=== PATIENT | female | born 1960 | race Caucasian/White ===

== ENCOUNTER 2023-10-16 16:28 | Emergency (ER) | payer OTHER, SELFPAY ==
[2023-10-16 16:58] VITALS: BP 101/52; PULSE 110; RESP 16; TEMP 36.6; O2SAT 98
[2023-10-16 18:55] VITALS: BP 122/40; PULSE 100; RESP 19; O2SAT 98
--- NOTE | 2023-10-16 19:34 | ED.GENADULT ---
HPI - General Adult General Chief complaint: Nausea/Vomiting/Diarrhea Stated complaint: im sure i am very dehydrated n/v/d Time Seen by Provider: 10/16/23 18:56 History of Present Illness HPI narrative: 63-year-old female presenting ED with chief complaint of nausea vomiting diarrhea. She has been having nausea for the last 2 weeks. She started developed diarrhea for 5 days ago. No fever chills chest pain difficulty breathing abdominal pain urinary symptoms. No recent antibiotics. Traveled to [facility] in August but did not develop diarrhea until 2 months after that. Related Data Allergies Allergy/AdvReac Type Severity Reaction Status Date / Time No Known Allergies Allergy Verified 10/16/23 19:34 [facility] Past Medical History Medical History Breast cancer Exam Narrative: APPEARANCE: No apparent distress. Well appearing Head: atraumatic. EYES: EOMI, NOSE: Atraumatic NECK: Trachea midline RESPIRATORY: No increased rate of breathing CARDIOVASCULAR: RRR, ABDOMINAL: Non-distended, soft nontender no guarding rebound MUSCULOSKELETAl: No obvious deformities NEURO: Alert. Moving 4/4 extremities SKIN:: Warm, dry. Normal color PSYCHIATRIC: Normal affect Course Vital Signs Vital signs: Vital Signs Temperature 98 F 10/16/23 16:58 Pulse Rate 110 H 10/16/23 16:58 Respiratory Rate 16 10/16/23 16:58 Blood Pressure 101/52 L 10/16/23 16:58 Pulse Oximetry 98 10/16/23 16:58 Oxygen Delivery Room Air 10/16/23 16:58 Temperature 98 F 10/16/23 16:58 Pulse Rate 91 10/16/23 21:34 Respiratory Rate 16 10/16/23 21:34 Blood Pressure 106/57 L 10/16/23 21:34 Pulse Oximetry 98 10/16/23 21:34 Oxygen Delivery Room Air 10/16/23 16:58 Medical Decision Making [facility] Narrative Medical decision making narrative: -Course: 6-year-old female presenting with nausea vomiting and diarrhea. Workup significant for hypokalemia and hypomagnesemia which was repleted. Patient given fluid rehydration with improvement. She is able to tolerate p.o.. Patient will be discharged with supportive care and return precautions. 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 -Interventions: 2L normal saline, Lomotil, Zofran, Forty mEq p.o. potassium, 2 g magnesium -Shared decision making / Disposition: Discharged -RX Lomotil, zofran Vital Signs Vital Signs: Vital Signs Temperature 98 F 10/16/23 16:58 Pulse Rate 110 H 10/16/23 16:58 Respiratory Rate 16 10/16/23 16:58 Blood Pressure 101/52 L 10/16/23 16:58 Pulse Oximetry 98 10/16/23 16:58 Oxygen Delivery Room Air 10/16/23 16:58 Temperature 98 F 10/16/23 16:58 Pulse Rate 91 10/16/23 21:34 Respiratory Rate 16 10/16/23 21:34 Blood Pressure 106/57 L 10/16/23 21:34 Pulse Oximetry 98 10/16/23 21:34 Oxygen Delivery Room Air 10/16/23 16:58 Lab Data 10/16/23 19:47 10/16/23 19:47 Labs: Lab Results 10/16/23 10/16/23 Range/Units 19:47 21:44 WBC 9.2 (4.5-10.0) K/mm3 RBC 4.07 L (4.2-5.4) M/mm3 Hgb 12.9 (12.0-15.0) g/dL Hct 38.2 (37.0-47.0) % MCV 93.9 (80-100) fl MCH 31.7 (26-34) pg MCHC 33.8 (32-36) g/dl RDW 13.9 (11.5-14.5) % Plt Count 372 (150-375) k/mm3 MPV 8.8 (7.4-10.4) fl Immature Gran % (Auto) Not Reportable Neut % (Auto) Not Reportable Lymph % (Auto) Not Reportable [place] % (Auto) Not Reportable Eos % (Auto) Not Reportable Baso % (Auto) Not Reportable Lymph # (Auto) Not Reportable [place] # (Auto) Not Reportable Eos # (Auto)
[2023-10-16] MEDS: SODIUM CHLORIDE 0.9% IV 2,000 ML 999 ML IV CONT (19:48)
[2023-10-16] MEDS: DIPHENOXYLATE/ATROPINE (*CRX) 2.5 MG TABLET 2 TABLET PO (19:48)
[2023-10-16] MEDS: ONDANSETRON INJ 4 MG/2 ML VIAL IV PUSH (19:48)
[2023-10-16 20:00] LABS: Hematocrit 38.2 % (37.0-47.0); Hemoglobin 12.9 g/dL (12.0-15.0); Mean Corpuscular HGB Conc 33.8 g/dl (32-36); Mean Corpuscular Hemoglobin 31.7 pg (26-34); Mean Corpuscular Volume 93.9 fl (80-100); Mean Platelet Volume 8.8 fl (7.4-10.4); Platelet Count Result 372 k/mm3 (150-375); Red Blood Count 4.07 M/mm3 (4.2-5.4); Red Cell Distribution Width 13.9 % (11.5-14.5); White Blood Count 9.2 K/mm3 (4.5-10.0)
[2023-10-16 20:13] LABS: Alanine Aminotransferase 15 U/L (6-35); Albumin Level 3.9 g/dL (3.5-5.1); Alkaline Phosphatase 97 U/L (38-126); Anion Gap 12 mmol/L (8-16); Aspartate Amino Transferase 22 U/L (14-36); Bilirubin,Total 0.6 mg/dL (0.2-1.3); Blood Urea Nitrogen 14 mg/dL (7-17); Calcium 9.3 mg/dL (8.4-10.2); Carbon Dioxide 23 mmol/L (22-30); Chloride 99 mmol/L (98-107); Estimated CRCL calculation 66 ml/min; Estimated Glomerular Filt Rate > 60; Glucose 100 mg/dL (65-110); Lipase 581 U/L (23-300); Magnesium 1.2 mg/dL (1.6-2.3); Phosphorus 3.5 mg/dL (2.5-4.5); Potassium 2.7 mmol/L (3.4-5.0); Sodium 134 mmol/L (137-145)
[2023-10-16 20:27] LABS: Band Neutrophils Percent 12 % (0-6); Lymphocytes Absolute Manual 1.28 K/mm3 (1.1-4.5); Monocytes Absolute Manual 0.92 K/mm3 (0.1-0.90); Monocytes Percent Manual 10 % (3-9); Neutrophils Absolute Manual 6.99 K/mm3 (1.7-7.2); Neutrophils Percent Manual 64 % (46-73); Total Cells Counted 100
[2023-10-16 20:28] LABS: Platelet Estimate Adequate (Adequate); Schistocytes None Seen (NORMAL)
[2023-10-16] MEDS: MAGNESIUM SULF 2 GM/WATER 50ML 2 GM/50 ML BAG IVPB (20:32)
[2023-10-16 20:35] LABS: Influenza A QL RT-PCR Negative (Negative); Influenza B QL RT-PCR Negative (Negative); RSV RNA, RT-PCR Negative (Negative); SARS-CoV-2 RNA PCR Negative (Negative)
[2023-10-16] MEDS: POTASSIUM CHLORIDE 20 MEQ ER TABLET 40 MEQ PO (21:00)
[2023-10-16 21:34] VITALS: BP 106/57; PULSE 91; RESP 16; O2SAT 98
[2023-10-16 21:46] LABS: Glucose Point of Care 90 mg/dl (65-105)
== END 2023-10-16 22:32 | disposition home or self-care (01) ==
PROVIDERS: Emergency Provider Emergency Medicine
DX: K52.9 Noninfective gastroenteritis and colitis, unspecified (principal); Z20.822 Contact with and (suspected) exposure to COVID-19; Z85.3 Personal history of malignant neoplasm of breast; Z92.21 Personal history of antineoplastic chemotherapy; Z90.13 Acquired absence of bilateral breasts and nipples
CPT/HCPCS: 36415; 80053; 82948; 83690; 83735; 84100; 85025; 87637; 96361; 96365; 96366; 96375; 99284; A9270; J2405; J3475; J7030

== ENCOUNTER 2024-03-05 09:53 | Outpatient (CLI) | payer OTHER, SELFPAY ==
--- NOTE | ~2024-03-05 | XR_ITS ---
XR shoulder LT min 2V Ordering provider: Ed Kincaid MD History: . M75.02 - Adhesive capsulitis of left shoulder . Comparison: None. FINDINGS: BONES: No acute fracture or dislocation. JOINT SPACES: The acromioclavicular joint is normal. The glenohumeral joint is normal. SOFT TISSUES: Normal. IMPRESSION: No acute osseous abnormality left shoulder. Reviewed, dictated and finalized at location A.
== END 2024-03-05 09:54 | disposition home or self-care (01) ==
PROVIDERS: Visit Provider Orthopaedic Surgery
DX: M75.02 Adhesive capsulitis of left shoulder (principal)
CPT/HCPCS: 73030

== ENCOUNTER 2025-07-24 01:52 | Day surgery (SDC) | payer OTHER, SELFPAY ==
[2025-07-03 15:30] VITALS: BMI 24.3
--- OUTSIDE RECORDS SUMMARY | 2025-07-24 01:55 | XMS_ITS ---
Author Organization [facility] Address [address] [place] [address] Care Team Providers Care Transmission Specialist Name Role Phone Jacqueline Vazquez MD Unavailable [phone] Jarred Anderson MD Unavailable [phone] Shawanda Mcpherson MD Unavailable Warner Mack MD Unavailable Rosa Cope MD Primary Care Provider [phone] Active Problems Problem Noted Date Diagnosed Date Necrosis of surgical wound 12/13/2023 Adhesive bursitis of left shoulder 12/13/2023 Breast pain, left 11/28/2023 Wound of left breast 11/28/2023 Cellulitis of left breast 11/28/2023 Breast wound 11/21/2023 Hx of breast reconstruction 11/21/2023 Moderate episode of recurrent major depressive d isorder 07/27/2023 Neuropathy due to chemotherapeutic drug 06/06/20 23 Allergies 06/06/2023 Dry mouth 06/06/2023 PVC's (premature ventricular contractions) 11/01 Anemia 10/11/2022 History of radiation therapy 10/11/2022 Iron deficiency anemia secon dianne to inadequate dietary iron intake 09/09/2022 Malignant neoplasm of upper- inner quadrant of left breast in female, estrogen receptor negative 05/25/2022 Cancer Staging:Clinical stage from 05/27/2022: cT1b - Unsigned Malignant neoplasm of lower- inner quadrant of right breast of female, estrogen receptor negative 05/06/2022 Cancer Staging:Clinical stage from 05/12/2022:Stage IB(cT1b, cN0, cM0, G2, ER-, WV-, HER2-) - Signed by Shawanda Mcpherson MD on 05/12/2022 Elevated hemoglobin A1c 11/01/2021 Overview (11/01/2021): Recheck 6 months Healthcare maintenance 09/29/2021 Overview (09/29/2021): -annual preventative visit done: 09/29/21 -Colonoscopy: 05/2015: normal. Repeat 10 years. (no family hx of colon cancer). -Yearly breast exams are done by Dr. Mcpherson (breast surgeon). -RIMA Vazquez. Multiple nevi 08/27/2020 Lentigines 03/13/2020 Eczema 03/13/2020 [place] angioma 03/13/2020 Breast cancer of lower-outer quadrant of left fe male breast 03/10/2016 Cancer Staging:Clinical stage from 04/22/2016:Stage IA(T1(2), N0, M0) - Signed by Rita Rodriguez MD on 01/15/2017 Pathologic stage from 04/22/2016:Stage IA(T1c(2), N0(i+), cM0) - Signed by Rita Rodriguez MD on 01/15/2017 Overview (01/15/2017): Left, lower outer, multifocal grade 1/3 IDC. T1cN0(i+)M0, stage I. ER pos, WV pos, Her-2 neg S/p 04/15/2016 partial mastectomy/SLN bx (juan): 1.5 cm and 1.0 cm tumors, no LVI, margin neg. Grade 1/3. 1/2 nodes with isolated tumor cells measuring less than 200. Med onc: Dr. Chambers: oncotypedx on both tumors with score os 7 and 9. 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 HYDRATION ORDERS* Plan Start Date:09/01/2022 Plan Provider:Parmjit Pierre MD Linked Problems Malignant neoplasm of lower- inner quadrant of right breast of female, estrogen receptor negative (HCC) Treatment Medications No medications scheduled. Other Current Plans SUPPORT (IRON DEXTRAN)* Plan Start Date:09/14/2022 Plan Provider:Parmjit Pierre MD Linked Problems Iron deficiency anemia alla dean to inadequate dietary iron intake Treatment Medications No medications scheduled. Past Treatment and Therapy Plans ONCOLOGY TREATMENT Plan Name Start Date Discontinue Date Treatment Medications Discontinue Reason Plan Provider Cycles BREAST NEOADJ (PEMBROLIZUMA B PACLITAXEL CARBOPLATIN-Q 3W) Q21 DAYS--> (PEMBROLIZUMA B DOXORUBICIN CYCLOPHOSPHAM NIA) Q21 DAYS --> ADJUVANT (PEMBROLIZUMA B) Q21 DAYS 06/29/20 22 11/10/2023 CARBOplatin (Paraplatin) Infusion (AUC Dosing)cycloPHOSphamide (Cytoxan) infusion (200 mg/mL vial)DOXOrubicin (Adriamycin)PACLitaxel (Taxol)PACLitaxel (Taxol) in 250 mL infusionpembrolizumab (Keytruda) Infusion Therapy Complete Parmjit Pierre MD 17 of 17 cycles started Lifetime Dose Tracking * Chemical Lifetime Dose Automatic Entry Manual Entr y Doxorubicin 249.932 mg/m2 (448 mg) 249.932 mg/m2 (448 mg) 0 mg/m2 (0 mg) Resolved Problems Problem Noted Date Diagnosed Date Resolved Date Dizziness 11/01/2022 12/13/2023 High risk for chemotherapy-i nduced infectious complication 10/13/2022 12/13/2023 Chronic cough 10/11/2022 02/14/2023 Major depressive disorder, s veronique episode, moderate 08/27/2020 01/19/2022 OA (osteoarthritis) of finge r, unspecified laterality 08/27/2020 02/14/2023 Peripheral sensory neuropathy 03/15/2017 09/29/2021 Encounter for long-term (cur rent) use of medications 03/11/2016 09/29/2021 Screen for colon cancer ord'd 02/06/12, 02/06/2012 09/29/2021
--- OUTSIDE RECORDS SUMMARY | 2025-07-24 01:55 | XMS_ITS | Encounter Summary ---
Author Organization [facility] Address [address] [place] [address] Care Team Providers Care Hospital Tray Service Worker Name Role Phone Monica JACOBSEN MD, Aamir Primary Care Provider Jennifer vailable Christian Soto MD Unavailable [phone] Karan Dasilva MD Unavailable [phone] Jacqueline Vazquez MD Unavailable [phone] Jarred Anderson MD Unavailable [phone] Shawanda Mcpherson MD Unavailable Eduard Webb MD Unavailable Kai Garcia MD Primary Care Provider [phone] Monica JACOBSEN MD, Edwin Primary Care Provider Jennifer vailable Joy Varma APRN-RAZ Primary Care Provider Angela Guerrier DO Primary Care Provider + [phone] Warner Mack MD Unavailable [phone] Angela Guerrier DO Primary Care Provider + [phone] Radha Orozco Unavailable [phone] Rosa Cope MD Primary Care Provider [phone] Encounter Details Date Type Department Care Team (Late st Contact Info) Description 01/13/2011 [facility]NAL [facility] DEPT Aamir Anderson III, MD RETIRED Social History Tobacco Use Types Packs/Day Years Used Date Smoking Tobacco: Never Alcohol Use Standard Drinks/Week Comments Yes 0 (1 standard drink = 0.6 oz pur e alcohol) Comments No Sex and Gender Information Value Date Recorded Sex Assigned at Female 11/23/2020 8:42 AM CDT Legal Sex Female 6:11 AM BLAST FURNACE OPERATOR Gender Identity Female 08/24/2020 9:10 AM BLAST FURNACE OPERATOR Sexual Orientation Not on file documented as of this encounter Plan of Treatment Upcoming Encounters Date Type Department Care Team (Late st Contact Info) Description 02/12/2026 3:00 PM CDT Documentation [facility] [address] [place] [id number] 02/12/2026 3:10 PM CDT Office Visit [facility] [address] [address] Parmjit Pierre MD [address] [address] documented as of this encounter Visit Diagnoses Not on filedocumented in this encounter Additional Health Concerns Infection Onset Date Last Indicated Resolved Time COVID-19 Under Investigation 03/30/2022 03/30/2022 03/30/2022 11:52 AM CDT COVID-19 Under Investigation 09/04/2023 09/04/2023 09/04/2023 12:02 PM BLAST FURNACE OPERATOR COVID-19 Confirmed 09/04/2023 09/04/2023 4:33 AM BLAST FURNACE OPERATOR documented as of this encounter Care Teams Hospital Tray Service Worker Relationship Specialty Start Date End Date Aamir Anderson III, MD PCP - General 12/06/09 04/13/20 Jacqueline Vazquez MD [address] [place] [address] PCP - OBGYN 04/01/10 Kai Garcia MD [address] [address] PCP - General Hematology and Oncology 04/14/20 Aamir Anderson III, MD RETIRED PCP - General 04/16/20 04/28/20 Joy Varma, HAND II [facility] [address] [place] [address] [place] [address] PCP - General Family Medicine 04/29/20 08/26/20 Angela Guerrier DO [address] [place] [address] PCP - General Internal Medicine 08/27/20 06/15/22 Angela Guerrier DO [address] [place] [address] PCP - General Internal Medicine 06/16/22 06/26/25 Rosa Cope MD [address] [place] [address] PCP - General Family Medicine 06/27/25 Christian Soto MD [address] [facility] [address] [place] [address] 04/01/10 09/28/21 Karan Dasilva MD [address] [facility] [address] [place] [address] 04/01/10 09/28/21 Jarred Anderson MD [address] [address] Gastroenterology 06/12/15 Shawanda Mcpherson MD [address] [place] [address] Referring Physician General Surgery 03/25/16 Eduard Webb MD [address] [place] [address] Radiation Oncologist Radiation Oncology 03/25/16 2 Warner Mack MD [address] [place] [id number] Orthopedic Surgery 09/29/21 Radha Orozco MSW Outpatient Pasteurizing Machine Operator Care Management 12/04/23 12/04/23 documented as of this encounter
--- OUTSIDE RECORDS SUMMARY | 2025-07-24 01:55 | XMS_ITS | Encounter Summary ---
Author Organization [facility] Address [address] [place] [address] Care Team Providers Care Dramatic Agent Name Role Phone Jacqueline Vazquez MD Unavailable [phone] Jarred Anderson MD Unavailable [phone] Shawanda Mcpherson MD Unavailable [phone] Warner Mack MD Unavailable [phone] Rosa Cope MD Primary Care Provider [phone] Encounter Details Date Type Department Care Team (Late st Contact Info) Description 06/30/2025 Results Follow-Up [facility] [address] [id number] [place] [address] [place] [address] Social History Tobacco Use Types Packs/Day Years Used Date Smoking Tobacco: Never Passive Smoke Exposure: Never Smokeless Tobacco: Never Alcohol Use Standard Drinks/Week Comments Yes 0 (1 standard drink = 0.6 oz pur e alcohol) twice a month 0-2 AUDIT-C Answer Date Recorded Q1: How often do you have a drink containing alc ohol? Monthly or less 11/29/2023 Q2: How many drinks containi ng alcohol do you have on a typical day when you are drinking? 1 or 2 11/29/2023 Q3: How often do you have si x or more drinks on one occasion? Never 11/29/2023 Overall Financial Resource Strain (CARDIA) Answe r Date Recorded How hard is it for you to pa y for the very basics like food, housing, medical care, and heating? Not hard at all 11/29/2023 PHQ-2 Answer Date Recorded Patient Health Questionnaire-2 Score 0 12/10/2024 [facility] - Occupational Stress Questionnaire Answer Date Recorded Do you feel stress - tense, restless, nervous, or anxious, or unable to sleep at night because your mind is troubled all the time - these days? Not at all 11/29/2023 Hunger Vital Sign Answer Date Recorded Within the past 12 months, y ou worried that your food would run out before you got the money to buy more. Never true 11/29/19 24 Within the past 12 months, t he food you bought just didn't last and you didn't have money to get more. Never true 11/29/2023 PRAPARE - Transportation Answer Date Re corded In the past 12 months, has l ack of transportation kept you from medical appointments or from getting medications? No 11/19 In the past 12 months, has l ack of transportation kept you from meetings, work, or from getting things needed for daily living? No 11/29/2023 Housing Stability Vital Sign Answer Messi e Recorded In the last 12 months, was t here a time when you were not able to pay the mortgage or rent on time? No 11/29/2023 In the last 12 months, how many places have you lived? 1 11/29/2023 In the last 12 months, was t here a time when you did not have a steady place to sleep or slept in a nursing home (including now)? No 11/29/2023 Comments No Sex and Gender Information Value Date Recorded Sex Assigned at Female 11/23/2020 8:42 AM CDT Legal Sex Female 6:11 AM OPERATIONS PLANNER Gender Identity Female 08/24/2020 9:10 AM OPERATIONS PLANNER Sexual Orientation Not on file documented as of this encounter Functional Status * Is person deaf or have serious hearing difficulty? Answer Date of Assessment Author No 11/29/2023 4:30 PM CDT Phoebe Jordan RN * Is person blind or have serious difficulty seeing? Answer Date of Assessment Author No 11/29/2023 4:30 PM CDT Phoebe Jordan RN * Does person have serious difficulty walking/climbing stairs? Answer Date of Assessment Author No 11/29/2023 4:30 PM CDT Phoebe Jordan RN * Does person have difficulty dressing/bathing? Answer Date of Assessment Author No 11/29/2023 4:30 PM CDT Phoebe Jordan RN * Does person have difficulty doing errands alone? Answer Date of Assessment Author No 11/29/2023 4:30 PM CDT Phoebe Jordan RN documented as of this encounter Mental Status * Does person have difficulty concentrating/remembering/making decisions? Answer Entry Date Author No 11/29/2023 4:30 PM ROBERTT Phoebe Jordan RN documented in this encounter Plan of Treatment Upcoming Encounters Date Type Department Care Team (Late st Contact Info) Description 02/12/2026 3:00 PM CDT Documentation [facility] [address] [address] 02/12/2026 3:10 PM CDT Office Visit [address] [address] Parmjit Pierre MD [address] [phone] documented as of this encounter Visit Diagnoses Not on filedocumented in this encounter Care Teams Dramatic Agent Relationship Specialty Start Date End Date Jacqueline Vazquez MD [address] [place] [address] PCP - OBGYN 04/01/10 Rosa Cope MD [address] [place] [address] PCP - General Family Medicine 06/27/25 Jarred Anderson MD [address] [address] Gastroenterology 06/12/15 Shawanda Mcpherson MD [address] [facility] [address] [place] [address] Referring Physician General Surgery 03/25/16 Warner Mack MD [address] [facility] [address] [place] [address] Orthopedic Surgery 09/29/21 documented as of this encounter
--- OUTSIDE RECORDS SUMMARY | 2025-07-24 01:55 | XMS_ITS | Clinical Summary ---
Author Organization [facility] Address [address] [place] [address] Care Team Providers Care Law Examiner Name Role Phone Jacqueline Vazquez MD Unavailable [phone] Jarred Anderson MD Unavailable [phone] Shawanda Mcpherson MD Unavailable [phone] Warner Mack MD Unavailable [phone] Rosa Cope MD Primary Care Provider [phone] [facility],non-owned Affiliates and Associated Physician Practices is amultiple site organization consisting of ambulatory clinics and hospital sitesin [place], [place], [place] and [place]. This disclosure is being madepursuant to the Care Everywhere program and may not contain all information available regarding this patient. Last updated 18.[facility] Allergies Active Allergy Reactions Criticality Noted Date Comments Aprepitant Nausea and/or Vomiting 07/07/2022 Bupropion GI Discomfort Low 07/22/2013 Poor tolerance Sertraline Diarrhea Low 09/26/2013 Medications * Be aware that medications may not be up to date on this document. Alwaysverify current medications with the patient. Calcium Carbonate-Vit D-Min (CALCIUM 1200 PO) Take 1 tablet by mouth once daily Active epinastine (Elestat) 0.05 % ophthalmic solution INSTILL 1 DROP IN BOTH EYES EVERY MORNING 3 Active Multiple Vitamins-Mineral s (Centrum Silver 50+Women) TABS Take by mouth once daily Active B Complex-Folic Acid (B COMPLEX-VITAMIN B12 PO) Take by mouth once daily Active loratadine (Claritin) 10 MG tablet Take 1 (one) tablet by mouth once daily Active diphenoxylate-at ropine (Lomotil) 2.5-0.025 MG tablet as needed for Diarrhea 4 Active naproxen (Naprosyn) 500 MG tablet Take 1 (one) tablet by mouth 2 times daily as needed for Pain (associated with physical therapy for frozen shoulder) 60 tablet 3 4 Active Additional Information Patient not taking.Reported on 07/22/2025 ketoconazole (Nizoral) 2 % cream APPLY TO AFFECTED AREA TWICE DAILY. 60 g 4 Active triamcinolone acetonide (Kenalog) 0.1 % ointmentIndicati ons:Rash and other nonspecific skin eruption Apply to itchy areas on body (not face) twice daily as needed. 30 days supply. 80 g 3 4 Active magnesium oxide (Mag-Ox) 400 MG tablet Take 1 (one) tablet by mouth once daily Active gabapentin (Neurontin) 300 MG capsule TAKE 1 CAPSULE BY MOUTH THREE TIMES A DAY 90 capsule 4 Active venlafaxine XR 24hr (Effexor XR) 37.5 MG capsule TAKE 1 CAPSULE BY MOUTH EVERY DAY IN THE MORNING 30 capsule 11 4 Active gabapentin (Neurontin) 100 MG capsule Take 1 (one) capsule by mouth 3 times daily 100 mg in the morning, 100 mg in the afternoon, 100 mg with 300 mg capsules in the evenings 90 capsule 3 4 Active rosuvastatin (Crestor) 5 MG tablet 5 Active Active Problems Problem Noted Date Diagnosed Date [...] of radiation therapy 10/11/2022 Iron deficiency anemia alla dean to inadequate dietary iron intake 09/09/2022 Malignant neoplasm of upper- inner quadrant of left breast in female, estrogen 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 T1cN0(i+)M0, stage I. ER pos, CO pos, Her-2 neg S/p 04/15/2016 partial mastectomy/SLN bx (juan): 1.5 cm and 1.0 cm tumors, no LVI, margin neg. Grade 1/3. 1/2 nodes with isolated tumor cells measuring less than 200. Med onc: Dr. Chambers: oncotypedx on both tumors with score os 7 and 9. 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 Resolved Problems Problem Noted Date Diagnosed Date Resolved Date Dizziness 11/01/2022 12/13/2023 High risk for chemotherapy-i nduced infectious complication 10/13/2022 12/13/2023 Chronic cough 10/11/2022 02/14/2023 Major depressive disorder, s veronique episode, moderate 08/27/2020 01/19/2022 OA (osteoarthritis) of ravindrae r, unspecified laterality 08/27/2020 02/14/2023 Peripheral sensory neuropathy 03/15/2017 09/29/2021 Encounter for long-term (cur rent) use of medications 03/11/2016 09/29/2021 Screen for colon cancer ord'd 02/06/12, 02/06/2012 09/29/2021 Encounters Date Type Department Care Team Description 07/22/2025 12:15 PM [facility] Office Visit [facility] - Surgery [address] [place] [address], [address] [place] [address] Shawanda Mcpherson MD Arrived 07/18/2025 Refill [facility] - Internal Medicine [address] [facility] [address] [place] [address] [place] [address] Angela Guerrier, DO Refill Request 06/30/2025 Results Follow-Up [facility] [address] [facility] [facility] [address] [place] [address] Parmjit Pierre MD 06/27/2025 3:09 PM [facility] - 06/27/2025 11:59 PM [facility] Hospital Encounter [facility] [address] [place] [address] Parmjit Pierre MD Discharge Disposition: Home or Self Care from Last 3 Months Immunizations Immunization Administration Dates Next Due INFLUENZA VACCINE, TRIV. (AF LURIA, FLUZONE TRIVALENT; 6MO+) (IIV3) 05/25/2014 COVID PFIZER BIVALENT 12Y+ 30mcg/0.3ML 05/14/2022 Covid Moderna primary monova lent 12+ yr 0.5mL 06/27/2021,10/02/2020,09/03/2020 INFLUENZA VACCINE 05/13/2023,,06/27/2021,2018,05/05/2017,04/23/2016,04/25/2015,1 ,04/21/2012 INFLUENZA VACCINE, CELL CULT URE, QUADR. (FLUCELVAX QUADRIVALENT; 6MO+) (CCIIV4) 05/14/2023 INFLUENZA VACCINE, QUADR. (A FLURIA, FLUZONE QUADRIVALENT; 6MO+) (IIV4) 04/27/2019,05/05/2017 INFLUENZA VACCINE, QUADR. (F LUZONE; FLULAVAL; FLUARIX; AFLURIA QUADRIVALENT; 6MO+), 0.5 ML (IIV4) 05/14/2022,06/27/2021,04/26/2020,2018,06/08/2018 INFLUENZA VACCINE, TRIV. (FL UZONE; FLULAVAL; FLUARIX; AFLURIA TRIVALENT; 6MO+), 0.5 ML (IIV3) 04/22/2016 PNEUMOCOCCAL PCV20 CONJ VAC IM 06/08/2023 RSV AREXVY 60YR+ 0.5ML 07/15/2023 TDAP (7yrs+) 03/15/2017 Zoster Hzv Vacc Recombinant Inj Im 06/27/2021, Family History Medical History Relation Name Comments Heart Disease Father Diabetes Mother Cancer - Skin, Melanoma Neg Hx Cancer - Skin, Non Melanoma Neg Hx Relation Name Status Comments Father Mother Social History Tobacco Use Types Packs/Day Years Used Date Smoking Tobacco: Never Passive Smoke Exposure: Never Smokeless Tobacco: Never Tobacco Cessation:Counseling Given: Not Answered Alcohol Use Standard Drinks/Week Comments Yes 0 [...] Recorded Patient Health Questionnaire-2 Score 0 12/10/2024 [facility] - Occupational Stress [...] place to sleep or slept in a mcc (including now)? No 11/29/2023 Comments No Sex and Gender Information Value Date Recorded Sex Assigned at Female 11/23/2020 8:42 AM CDT Legal Sex Female 6:11 AM [facility] Gender Identity Female 08/24/2020 9:10 AM [facility] Sexual Orientation Not on file Last Filed Vital Signs Vital Sign Reading Time Taken Comments Blood Pressure 125/71 07/22/2025 12:18 PM [facility] Pulse 82 07/22/2025 12:18 PM [facility] Temperature 36.7 C (98.1 F) 07/22/2025 12:18 PM [facility] Respiratory Rate 18 07/23/2024 1:53 PM [facility] Oxygen Saturation 100% 07/22/2025 12:18 PM [facility] Inhaled Oxygen Concentration - - Weight 72.2 kg (159 lb 3.2 oz) 07/22/2025 12:18 PM [facility] Height 170.2 cm (5' 7) 07/22/2025 12:18 PM [facility] Body Mass Index 24.93 07/22/2025 12:18 PM [facility] Plan of Treatment Upcoming Encounters Date Type Department Care Team (Late st Contact Info) Description 02/12/2026 3:00 PM CDT Documentation [address] [address] 02/12/2026 3:10 PM CDT Office Visit [address] [address] Parmjit Pierre MD [address] [place] [phone] Health Maintenance Due Date Last Done Comments COLOGUARD (AGES 45-75) - COLON CA SCREENING 1960 CT COLONOGRAPHY - COLON CA SCREENING 1960 FIT - COLON CA SCREENING 1960 FLEX SIG - COLON CA SCREENING 1960 MAMMOGRAM 04/26/2023 04/26/2022, 0808/2020, 04/14/2020, Additional history exists PAP with HPV 10/18/2023 10/18/2018 COVID-19 VACCINE ( season) 2025 05/14/2023, 05/14/2022, 03/06/2022, Additional history exists INFLUENZA VACCINE (#1) 2025 , 05/14/2023, 05/13/2023, Additional history exists COLON MONITORING 06/16/2025 06/16/2015 COLONOSCOPY - COLON CA SCREENING 06/16/2025 06/16/2015, 06/12/2015 Colorectal Cancer Screening 06/16/2025 DTAP/TDAP/TD VACCINES (2 - Td or Tdap) 03/15/2027 03/15/2017 ZOSTER VACCINE Completed 06/27/2021, 04/28/2021 HEPATITIS C SCREENING Completed 10/19/2021 HIV SCREENING Completed 10/19/2021 PNEUMOCOCCAL VACCINE 50+ Completed 06/08/2023 Respiratory Syncytial Virus (RSV) Vaccine Pt: or over 60 yrs Completed 07/15/2023 DEPRESSION SCREENING Completed 12/10/2024, 12/08/2023, 11/28/2023, Additional history exists BONE DENSITY TESTING Completed 06/27/2025, 10/24/2022, 11/06/2020, Additional history exists HEPATITIS B VACCINE Aged Out No longe r eligible based on patient's age to complete this topic HIB VACCINE Aged Out No longer eligi ble based on patient's age to complete this topic HPV VACCINE Aged Out No longer eligi ble based on patient's age to complete this topic MENINGOCOCCAL (Group B) VACCINE SHARED DECISION-MAKING Aged Out No longer eligible based on patient's age to complete this topic MENINGOCOCCAL GROUPS A/C/Y/W VACCINE Aged Out No longer eligible based on patient's age to complete this topic Medical Devices Implanted Type Area Cattle Sticker Device Identifier Shelf Expiration Date Model / Serial / Lot [place] Artoura Plus Smooth Implanted:Qty: 1 on 12/26/2022 by Luna Chawla MD at [facility] Right: Breast [place] 07/05/2026 [facility] [place] [address] / [id number] Description:P.E [place] Artoura Plus Smooth Implanted:Qty: 1 on 12/26/2022 by Luna Chawla MD at [facility] Left: Breast [place] [employer] 07/05/2026 [facility] [place] / / [id number] Description:Malathi.Casey Mtrx Tissue Aldrm Algrf Prfr Implanted:Qty: 1 on 12/26/2022 by Luna Chawla MD at [facility] Left: Breast [employer] Ana 05/20/2024 [id number] / / [id number] Description:E.P Mtrx Tissue Aldrm Algrf Prfr Implanted:Qty: 1 on 12/26/2022 by Luna Chawla MD at [facility] Right: Breast [employer] Ana 09/20/2024 [id number] / / [id number] Impl Brst Natrelle Inspira Full Prfl - [id number] Implanted:Qty: 1 on 04/17/2023 by Luna Chawla MD at [facility] Right: Breast [employer] 04/04/2025 [facility]-345 / [id number] / [id number] Impl Brst Natrelle Inspira Full Prfl - [id number] Implanted:Qty: 1 on 04/17/2023 by Luna Chawla MD at [facility] Left: Breast [employer] 03/14/[address] [facility]-345 / [id number] / [id number] Impl Brst Natrelle Inspira Full Prfl - [id number] Implanted:Qty: 1 on 12/02/2023 by Luna Chawla MD at [facility] Left: Breast [employer] 09/03/[address] [facility]-345 / [id number] / [id number] Procedures Procedure Name Priority Date/Time Associated Diagnosis Comments DEXA BONE DENSITY AXIAL SKELETON Routine 06/27/2025 3:39 PM [facility] Osteopenia, unspecified location MAMMO BILAT SCREENING W JULIET Routine 04/26/2022 11:52 AM CDT Malignant neoplasm of lower-outer quadrant of left breast of female, estrogen receptor positive HEPATITIS C ANTIBODY W RFLX PCR Routine 10/19/2021 8:05 AM [facility] Need for hepatitis C screening test HIV-1 HIV-2 ANTIBODY + HIV P24 AG PANEL Routine 10/19/2021 8:05 AM [facility] Screening for HIV (human immunodeficiency virus) HPV DETECTION HIGH RISK CAROLYNE Routine 10/18/2018 11:26 AM [facility] Well woman exam with routine gynecological exam ENDOSCOPY, COLON, SCREENING Routine 06/16/2015 from Last 3 Months or Most Recently Relevant to Health Maintenance Results * DEXA BONE DENSITY AXIAL SKELETON (06/27/2025 3:39 PM [facility]) Anatomical Region Laterality Modality Nuclear Medicine 06/27/2025 4:50 PM [facility] Impressions 06/27/2025 4:51 PM [facility] IMPRESSION: WHO category: Osteopenia WORLD HEALTH ORGANIZATION DEFINITIONS NORMAL= T-Score at or above -1.0 SD OSTEOPENIA = T-Score between -1 and -2.5 SD OSTEOPOROSIS = T-Score at or below -2.5 SD > Interpreting Provider: Tammy Islas DO on 06/27/2025 4:51 PM Narrative 06/27/2025 4:51 PM [facility] PROCEDURE: DEXA BONE DENSITY AXIAL SKELETON DATE/TIME OF EXAM: 06/27/2025 3:39 PM CLINICAL INFORMATION: None relevant/not provided if blank. Indication: M85.80: Osteopenia, unspecified location COMPARISON: DEXA 10/24/2022 INDICATION: 64 years-old for osteoporosis screening. FINDINGS: The mean bone mineral content of the lumbar spine is 1.368 g/cm2 and T-score is 1.6. The mean bone mineral content of the left femoral neck is 0.752 g/cm2 and T-score is -2.1. The mean bone mineral content of the left total hip is 0.872 g/cm2 and T-score is -1.1. The mean bone mineral content of the right femoral neck is 0.842 g/cm2 and T-score is -1.4. The mean bone mineral content of the right total hip is 0.875 g/cm2 and T-score is -1.1. FRAX 10 year fracture risk Major osteoporotic fracture: 17.9% Hip fracture: 2.9% In comparison to prior exam, there is improvement of the lumbar spine and hips. Procedure Note Tammy Islas DO - 06/27/2025 PROCEDURE: DEXA BONE DENSITY AXIAL SKELETON DATE/TIME OF EXAM: 06/27/2025 3:39 PM CLINICAL INFORMATION: None relevant/not provided if blank. Indication: M85.80: Osteopenia, unspecified location COMPARISON: DEXA 10/24/2022 INDICATION: 64 years-old for osteoporosis screening. FINDINGS: The mean bone mineral content of the lumbar spine is 1.368 g/cm2 and T-score is 1.6. The mean bone mineral content of the left femoral neck is 0.752 g/cm2and T-score is -2.1. The mean bone mineral content of the left total hip is 0.872 g/cm2 and T-score is -1.1. The mean bone mineral content of the right femoral neck is 0.842 g/cm2and T-score is -1.4. The mean bone mineral content of the right total hip is 0.875 g/cm2 and T-score is -1.1. FRAX 10 year fracture risk Major osteoporotic fracture: 17.9% Hip fracture: 2.9% In comparison to prior exam, there is improvement of the lumbar spineand hips. IMPRESSION: WHO category: Osteopenia WORLD HEALTH ORGANIZATION DEFINITIONS NORMAL= T-Score at or above -1.0 SD OSTEOPENIA = T-Score between -1 and -2.5 SD OSTEOPOROSIS = T-Score at or below -2.5 SD > Interpreting Provider: aTmmy Islas DO on 06/27/2025 4:51 PM Parmjit Pierre MD DEXA ORDERABLES Final Result * MAMMO BILAT SCREENING W JULIET (04/26/2022 11:52 AM CDT) Anatomical Region Laterality Modality Breast Bilateral Mammography 04/26/2022 12:5 2 PM CDT Impressions 04/26/2022 1:30 PM CDT IMPRESSION: Right breast focal asymmetry. Right breast diagnostic mammogram and possible ultrasound is recommended. OVERALL FINAL ASSESSMENT: BI-RADS Category 0: Incomplete - Need Additional Imaging Evaluation. > Interpreting Provider: Ed Fox MD on 04/26/2022 1:30 PM Narrative 04/26/2022 1:30 PM CDT EXAMINATION: BILATERAL DIGITAL SCREENING MAMMOGRAM AND BILATERAL BREAST TOMOSYNTHESIS HISTORY: Screening. Personal history of left breast cancer treated with partial mastectomy in 2016. COMPARISON: Serial examinations dating back to March 27, 2018. TECHNIQUE: BILATERAL digital breast tomosynthesis (DBT) and synthetic 2D digital mammogram images were obtained (bilateral craniocaudal and mediolateral oblique projections) including computer aided detection (CAD.) BREAST PARENCHYMAL COMPOSITION:Category B: There are scattered areas of fibroglandular density. MAMMOGRAM FINDINGS: There is a new focal asymmetry in the slightly inner lower right breast at posterior depth which is best seen on CC slice 19/69 and MLO slice 31/69. There is no additional suspicious mammographic finding in the right breast. Again seen are changes of partial mastectomy in the left breast related there is no new suspicious mammographic finding in the left breast. us Parmjit Pierre MD MAMMO ORDERABLES Final Result * HEPATITIS C ANTIBODY W RFLX PCR (10/19/2021 8:05 AM [facility]) Hepatitis C Antibody <0.1 0.0 - 0.9 s/co ratio [facility] ACCOUNT BILL Comment:FASTING Blood BLOOD SPECIMEN / Unknown 10/19/2021 8:05 AM [facility] 10/19/2021 Narrative Resulting Agency Comment Lab Testing performed at: [facility] [place] [employer] [place] [address] [phone] us Angela Guerrier DO LAB - CHEMISTRY ORDERABLES Final Result Performing Organization Address City/State/[facility] Co de Phone Number [facility] ACCOUNT BILL [address] [place] [address] * HIV-1 HIV-2 ANTIBODY + HIV P24 AG PANEL (10/19/2021 8:05 AM [facility]) HIV Screen 4th Generation w Reflex Non Reactive Non Reactive [facility] ACCOUNT BILL Comment: HIV Negative HIV-1/HIV-2 antibodies and HIV-1 p24 antigen were NOT detected. There is no laboratory evidence of HIV infection. FASTING Blood BLOOD SPECIMEN / Unknown 10/19/2021 8:05 AM [facility] 10/19/2021 Narrative Resulting Agency Comment Lab Testing performed at: [facility] [address] [id number] Angela Guerrier DO LAB - CHEMISTRY ORDERABLES Final Result [facility] ACCOUNT BILL [address] [place] [address] * HPV DETECTION HIGH RISK CAROLYNE (10/18/2018 11:26 AM [facility]) High Risk Human Papilloma Result Not Detected Not Detected 10/22/2018 5:38 PM [facility] High Risk Human Papilloma Interp 10/22/2018 5:38 PM [facility] Comment:High Risk Human Lenin lloma Virus was Not Detected. Pathology/Cytolo gy MISCELLANEOUS SAMPLES / Unknown 10/18/2018 11:26 AM [facility] 10/19/2018 11:26 AM [facility] Narrative [facility] - 10/22/2018 5:38 PM [facility] Nucleic acid isolated from the specimen was analyzed with a nucleic acid amplification test (FDA approved Gen-Probe HPV Assay) to detect high risk human papilloma virus (Types: 16, 18, 31, 33, 35, 39, 45, 51, 52, 56, 58, 59, 66, and 68). The reference range is Not Detected. Comment: These test results should not be used as the sole basis for clinical assessment and treatment of patients. These results should always be correlated with other available data (cytology, histology, and clinical information). Jacqueline Vazquez MD LAB - MICROBIOLOGY O RDERABLES Final Result Performing Organization Address City/[facility]/ZIP Co de Phone Number [facility] [address] [phone] * ENDOSCOPY, COLON, SCREENING (06/16/2015) Aamir Anderson III, MD GI PROCEDURE ORDERABLES Fi nal Result from Last 3 Months or Most Recently Relevant to Health Maintenance Insurance [employer] [facility] Member Subscriber Plan / Payer (Ef fective 2013-Present) Name:Iman Mario Relation to Subscriber:Spouse Name:RUDY MARIO Date of :1971 Payer ID:[id number] (NAIC) Type:[employer] Address: [address] [facility] Member Subscriber Plan / Payer (Ef fective 2013-Present) Name:Iman Mario Relation to Subscriber:Spouse Name:RUDY MARIO Date of :1971 Payer ID:[id number] (NAIC) Type:[employer] Address: [address] [facility] Member Subscriber Plan / Payer (Ef fective 2013-Present) Name:Iman Mario Relation to Subscriber:Spouse Name:RUDY MARIO Date of :1971 Payer ID:[id number] (NAIC) Type:HMO Address: [address] [facility] Member Subscriber Plan / Payer (Ef fective 2013-Present) Name:Iman Mario Relation to Subscriber:Spouse Name:RUDY MARIO Date of :1971 Payer ID:[id number] (NAIC) Type:O Address: [place] [phone] [facility] [place] Address: [address] Member Subscriber Plan / Payer (Ef fective 2013-Present) Name:Iman Mario Relation to Subscriber:Spouse Name:RUDY MARIO Date of :1971 Payer ID:[id number] (NAIC) Type:O Address: [place] [phone] Advance Directives * Full Code (Latest Code Status on File) Date Activated Date Inactivated Comments 11/28/2023 3:48 PM 12/02/2023 5:04 PM * Full Code Date Activated Date Inactivated Comments 12/26/2022 4:33 PM 12/27/2022 3:06 PM Care Teams Law Examiner Relationship Specialty Start Date End Date Jacqueline Vazquez MD [address] [place] [address] PCP - OBGYN 04/01/10 Rosa Cope MD [address] [place] [address] PCP - General Family Medicine 06/27/25 Jarred Anderson MD [address] [place] [address] Gastroenterology 06/12/15 Shawanda Mcpherson MD [address] [facility] [address] [address] [place] [address] Referring Physician General Surgery 03/25/16 Warner Mack MD [address] [place] [address] Orthopedic Surgery 09/29/21
[2025-07-24 09:31] VITALS: BP 118/73; PULSE 88; RESP 18; TEMP 36.5; O2SAT 100; BMI 24.6
[2025-07-24] MEDS: LACTATED RINGERS 1,000 ML 150 ML IV CONT (09:34)
--- NOTE | 2025-07-24 11:38 | PM.IMHP2 ---
H&P: HPI History of Present Illness Date/Time: 07/24/25 11:38 Chief Complaint: Screening colonoscopy Narrative: This is the patient's 2nd screen colonoscopy. There are no GI symptoms and there is no family history of colorectal cancer. Review of Systems Review of Systems: All systems reviewed & are unremarkable except as noted in HPI and below PMFSH Past Medical History Medical History (Updated 07/24/25 @ 11:38 by Viktor Paniagua MD) Frozen shoulder Port-A-Cath in place History of foot fracture Lipoma History of insomnia Osteoarthritis of fingers of hands, bilateral Hot flashes Hx of radiation therapy History of irregular heartbeat History of depression Peripheral neuropathy due to chemotherapy Anemia due to chemotherapy Breast cancer Surgical History Surgical History History of arthroscopy of left shoulder History of lumpectomy of left breast Social History Social History Smoking status: Never smoker Substance use type: does not use Lack of Transportation: No Lack of Food: Never True Current Housing: I Have Housing Concerned About Future Housing: No Difficulty Paying Gas/Electric Bills: No Difficulty Paying for Meds: No Currently Unemployed: No Education: Associate Degree Difficulty w/ Childcare or Family Care: No Living arrangements: with family Additional living arrangements comments: withsp Meds Home Medications and Allergies Home Medications ?Medication ?Instructions ?Recorded ?Confirmed ?Type calcium carbonate-vitamin D3 500 1 tablet PO DAILY 02/13/24 07/24/25 History mg(1,250 mg)-600 unit chewable tablet epinastine 0.05 % eye drops 1 drp EACH EYE Q12H 02/13/24 07/24/25 History loratadine 10 mg tablet (Claritin) 10 mg PO DAILY 02/13/24 07/24/25 History [id number] 8 mg-folic 400 1 tablet PO DAILY 02/13/24 07/24/25 History mcg-K 50 mcg-lutein 300 mcg tablet (Centrum Silver Women) venlafaxine 37.5 mg 37.5 mg PO DAILY 02/13/24 07/24/25 History capsule,extended release 24 hr (Effexor XR) vitamin B complex-folic acid 0.4 1 tablet PO DAILY 02/13/24 07/24/25 History mg tablet (B Complex 1 (with folic acid)) rosuvastatin 5 mg tablet 5 mg PO DAILY #90 tabs 06/04/25 07/24/25 Rx gabapentin 300 mg capsule 300 mg PO TID #270 caps 06/20/25 07/24/25 Rx (Neurontin) gabapentin 100 mg capsule 100 mg PO TID #270 caps 07/21/25 Rx (Neurontin) Allergies Allergy/AdvReac Type Severity Reaction Status Date / Time No Known Allergies Allergy Verified 07/24/25 09:29 Vital Signs Vital Signs - 24 hr 07/24/25 09:31 Temperature 97.7 F Pulse Rate 88 Respiratory Rate 18 Blood Pressure 118/73 Pulse Oximetry 100 Oxygen Delivery Room Air Exam Const: General: cooperative and healthy appearing Resp: Effort & Inspection: normal respiratory effort and able to speak in complete sentences Auscultation: clear to auscultation bilaterally Cardio: Rate: regular rate Rhythm: regular rhythm GI: Inspection: normal to inspection GI Palp: No No hepatosplenomegaly present Auscultation: normal bowel sounds Rectal Exam: deferred Skin: General skin exam: normal color Psych: Appearance: grossly normal Mental Status: mental status grossly normal Assessment and Plan Assessment and plan (1) Encounter for screening colonoscopy: Code(s): Z12.11 - Encounter for screening for malignant neoplasm of colon Status: Acute Assessment and Plan: The patient is deemed a good candidate for the procedure. Consent signed. Will proceed.
--- NOTE | 2025-07-24 11:47 | WPDANESEPPF ---
Anes - Initial Pre Proc Eval Procedure: Operation Date: 07/24/25 10:30 Proposed Procedures p Screening Colonoscopy - Viktor Paniagua MD Date/Time: 07/24/25 11:47 Surgeon: Viktor Paniagua MD Pre Op Diagnosis: Screening Patient Data Age: 65 Gender: F Height: 1.7 m Weight: 71.3 kg Last Vital Signs Temp 36.5 C 07/24/25 09:31 Pulse 88 07/24/25 09:31 Resp 18 07/24/25 09:31 BP 118/73 07/24/25 09:31 Pulse Ox 100 07/24/25 09:31 O2 Del Method Room Air 07/24/25 09:31 Allergies Allergy/AdvReac Type Severity Reaction Status Date / Time No Known Allergies Allergy Verified 07/24/25 09:29 Home Medications ?Medication ?Instructions ?Recorded ?Confirmed ?Type calcium carbonate-vitamin D3 500 1 tablet PO DAILY 02/13/24 07/24/25 History mg(1,250 mg)-600 unit chewable tablet epinastine 0.05 % eye drops 1 drp EACH EYE Q12H 02/13/24 07/24/25 History loratadine 10 mg tablet (Claritin) 10 mg PO DAILY 02/13/24 07/24/25 History [id number]-hvhx-[id number] 8 mg-folic 400 1 tablet PO DAILY 02/13/24 07/24/25 History mcg-K 50 mcg-lutein 300 mcg tablet (Centrum Silver Women) venlafaxine 37.5 mg 37.5 mg PO DAILY 02/13/24 07/24/25 History capsule,extended release 24 hr (Effexor XR) vitamin B complex-folic acid 0.4 1 tablet PO DAILY 02/13/24 07/24/25 History mg tablet (B Complex 1 (with folic acid)) rosuvastatin 5 mg tablet 5 mg PO DAILY #90 tabs 06/04/25 07/24/25 Rx gabapentin 300 mg capsule 300 mg PO TID #270 caps 06/20/25 07/24/25 Rx (Neurontin) gabapentin 100 mg capsule 100 mg PO TID #270 caps 07/21/25 Rx (Neurontin) Patient hx anesthesia problems: none Family hx anesthesia problems: none Results Review: All pre-operative results and documents have been reviewed as part of the pre-operative evaluation. [facility] Past Medical History Medical History Frozen shoulder Port-A-Cath in place History of foot fracture Lipoma History of insomnia Osteoarthritis of fingers of hands, bilateral Hot flashes Hx of radiation therapy History of irregular heartbeat History of depression Peripheral neuropathy due to chemotherapy Anemia due to chemotherapy Breast cancer Surgical History Surgical History History of arthroscopy of left shoulder History of lumpectomy of left breast Social History Social History Smoking status: Never smoker Substance use type: does not use Lack of Transportation: No Lack of Food: Never True Current Housing: I Have Housing Concerned About Future Housing: No Difficulty Paying Gas/Electric Bills: No Difficulty Paying for Meds: No Currently Unemployed: No Education: Associate Degree Difficulty w/ Childcare or Family Care: No Living arrangements: with family Additional living arrangements comments: morro Abarca Final PreProcedure Day of Procedure 07/24/25 11:47 Patient weight: normal Heart: regular rate and rhythm Lungs: clear to auscultation Airway: Mallampati scale class II Neurological: alert and oriented Last oral intake: >/= 8 hours ASA classification: III Emergent: no Anesthetic plan: proceed Anesthesia type and monitoring: general GIVS and standard monitoring Results Review: All pre-operative results and documents have been reviewed as part of the pre-operative evaluation. Informed Consent: The patient's anesthetic plan and its attendant risks and benefits were discussed with the patient/family/POA. Questions were solicited and answers provided to the satisfaction of the patient/family/POA.
--- NOTE | 2025-07-24 12:08 | SUR.OPER ---
DR KHAN AWARE TRANSVERSE COLON POLYP NOT RETRIEVED
[2025-07-24 12:10] VITALS: BP 91/61; PULSE 73; RESP 15; O2SAT 96
[2025-07-24 12:20] VITALS: BP 112/74; PULSE 78; RESP 16; O2SAT 99
[2025-07-24 12:30] VITALS: BP 115/77; PULSE 74; RESP 15; O2SAT 99
== END 2025-07-24 12:38 | disposition home or self-care (01) ==
PROVIDERS: PCP Student in an Organized Health Care Education/Training Program; Referring Provider Student in an Organized Health Care Education/Training Program; Visit Provider Internal Medicine Gastroenterology
PROC: 0DJD8ZZ Inspection of Lower Intestinal Tract, Via Natural or Artificial Opening Endoscopic (ICD-10-PCS; CPT 45378; principal; 2025-07-24 10:30)
DX: Z12.11 Encounter for screening for malignant neoplasm of colon (principal); K63.5 Polyp of colon; G47.00 Insomnia, unspecified; M19.042 Primary osteoarthritis, left hand; M19.041 Primary osteoarthritis, right hand; I49.9 Cardiac arrhythmia, unspecified; F32.A Depression, unspecified; G62.9 Polyneuropathy, unspecified; Z98.890 Other specified postprocedural states; Z90.12 Acquired absence of left breast and nipple; Z95.828 Presence of other vascular implants and grafts; Z85.3 Personal history of malignant neoplasm of breast; Z92.3 Personal history of irradiation; Z92.21 Personal history of antineoplastic chemotherapy
CPT/HCPCS: 45385; J2704; J7120